=== PATIENT | male | born 1975 | race Caucasian/White ===

== ENCOUNTER 2017-12-26 01:56 | Outpatient (RCR) | payer MEDICAID, SELFPAY ==
[2017-12-25] MEDS: Normal Saline Flush 10 ML SYR IVP (13:34)
--- NOTE | 2017-12-25 14:08 | NUR.NOTE ---
Nursing Note: PT DEVELOPED WHAT APPEARS TO BE HIVES ALONG ARM ABOVE IV SITE AND EXTENDS TO JUST BELOW AC. AREA ALSO SLIGHTLY REDDENED. PT DENIES PAIN TO THE AREA, STATES THAT IT ITCHES. IV IS NOT INFILTRATED. NO OTHER SYMPTOMS ARE REPORTED BY PT. INFUSION STOPPED, MED REMOVED FROM IV LINE AND THEN LINE FLUSHED WITH SALINE. [place] [place]. WAITING FOR CALL.
== END 2018-01-08 23:59 | disposition home or self-care (01) ==
LOC: INF 01:56
PROVIDERS: PCP Registered Nurse; Visit Provider Internal Medicine
DX: G06.2 Extradural and subdural abscess, unspecified (principal); M86.00 Acute hematogenous osteomyelitis, unspecified site; K68.12 Psoas muscle abscess; R78.81 Bacteremia
CPT/HCPCS: 96365; J0878

== ENCOUNTER 2021-12-09 11:30 | Emergency (ER) | payer MEDICAID, SELFPAY ==
[2021-12-09 11:33] VITALS: BP 106/68; PULSE 86; RESP 18; TEMP 36.9; O2SAT 98
--- NOTE | 2021-12-09 11:41 | NUR.NOTE ---
additional allergy to infusion after surgery - unknown drug Nursing Note:
--- NOTE | 2021-12-09 11:45 | DI.RAD_ITS ---
Exam(s) XR RIBS LT W PA LAT CHEST EXAM: XR RIBS LT W PA LAT CHEST CLINICAL HISTORY: left rib injury 7,8,9. TECHNIQUE: 2D digital imaging was performed. COMPARISON: No exams were available for comparison FINDINGS: Four views: Left ribs-three views: There are no obvious left rib fractures. No rib lesions. Chest x-ray-two views: Heart size normal. Mediastinum not widened. Right lung is clear. There is p latelike atelectasis-mild infiltrate in the left lung base. Mild blunting of left costophrenic angle is probably a small amount of pleural fluid. There is no pneumothorax. IMPRESSION: No obvious left rib fractures but there is platelike atelectasis in left lung base. No pneumothorax. No pleural effusion. DATA REPOSITORY: RADIATION DOSE DELIVERED:
--- NOTE | 2021-12-09 11:56 | ED.GENADUL_ITS ---
Discharge Plan Disposition Patient Disposition: HOME Condition: Stable Discharge Details Clinical Impression: Fracture of rib Primary Care Provider: Marlon Dillon ED Provider: Thang Villagran Home Meds and New Rx's Prescriptions: New doxycycline hyclate 100 mg tablet 100 mg PO BID 7 Days Qty: 14 0RF lidocaine 5 % adhesive patch,medicated 1 patch topical DAILY PRN (Reason: pain) Qty: 15 1RF Rx Instructions: leave on most painful area for 12 hrs Continued buprenorphine-naloxone [Suboxone] 8-2 mg film 1 film sublingual BID Label Comments: PLACE TWO FILMS UNDER THE TONGUE EVERY DAY Discharge Instructions Instructions: Rib Fracture (ED) Additional Instructions: If you develop any new or significant worsening of symptoms feel free to return the emergency department for reassessment. Otherwise you may continue to use [id number] ibuprofen and it is recommended to take 600 mg every 6 hours as needed for pain. There was question of a possible pneumonia seen on chest x- ray so please take antibiotics as prescribed and until fully completed. Keep your follow-up with your primary care provider on Saturday and inform them of the broken rib with underlying pneumonia. Referrals: Marlon Dillon [Primary Care Provider] - 12/11/21 Medical Decision Making Patient presenting to the emergency department for chief complaint of left chest wall injury. Approximately 2 weeks ago he was playing with his child who accidentally kneed him in the chest. Since then he has had significant pain to the left anterior lower aspect of the chest wall with some ecchymosis off of the area. Patient denies any fever chills, difficulty breathing, cough or productive sputum. Physical exam shows clear lung sounds with ecchymosis over the seventh eighth and ninth midclavicular left ribs exam is otherwise unremarkable. We will perform radiological imaging for suspicion of acute rib fracture and will give lidocaine patch and IM Toradol pending results. Review of radiological imaging shows a possible left anterior sixth rib fracture with also possible 11th rib fracture. Also noted was a left lower lobe infiltrate and pleural effusion. Reassessed patient and patient states improvement of symptoms. We will place patient on antibiotics due to noting infiltrate in spite of patient's not having symptoms he is at high risk for development of pneumonia. We will also prescribe lidocaine patches and recommend over the counter NSAIDs. Patient also states he already has an appointment to follow-up with primary care provider on Saturday which I feel is appropriate. After discussion of diagnosis and plan of care patient has no further needs, questions, or concerns and states clear understanding to return to the emergency department for any worsening symptoms. This documentation was generated using Amnis dictation system, please disregard any oddities of phrase or misspellings. Imaging Data Radiologic Study: Attestation: I personally reviewed and interpreted this imaging study as follows: Imaging: X-Ray Radiologist's impression: FINDINGS: Limitations: A BB was not used to lencho the area of clinical interest. Bones/joints: Possible anterior left 6th rib fracture near the costochondral junction. Possible left posterior 11th rib fracture. Lungs: Patchy left lower lobe infiltrate. Soft tissues: Unremarkable. IMPRESSION: 1. Possible left anterior 6th rib fracture. Possible left posterior al rib fracture. 2. Left lower lobe infiltrate. 3. Left pleural effusion. HPI General Mode of arrival: ambulatory . Date/Time Provider Initiated Documentation: 12/09/21 11:48 . Limitations to Documentation: no limitations . Information obtained by: patient and RN notes reviewed . History of Present Illness 46 year old M presents to the emergency department with the chief complaint of left chest wall injury, described as moderate, with intensity rated at 8. Quality is described as aching and sharp, and is localized to the chest. Patient reports no radiation. Patient started experiencing this week(s) (2) and it has been constant. No relieving factors improve symptom(s), No exacerbating factors reported . Patient notes no other symptoms.. Patient did receive the following treatments prior to arrival, none Related Data Home Medications Medication Instructions Recorded Confirmed buprenorphine 8 mg-naloxone 2 mg 1 film sublingual BID 12/09/21 12/09/21 sublingual film (Suboxone) doxycycline hyclate 100 mg tablet 100 mg PO BID 7 days #14 tabs 12/09/21 lidocaine 5 % topical patch 1 patch topical DAILY PRN pain #15 12/09/21 ea Previous Rx's Medication Instructions Recorded doxycycline hyclate 100 mg tablet 100 mg PO BID 7 days #14 tabs 12/09/21 lidocaine 5 % topical patch 1 patch topical DAILY PRN pain #15 12/09/21 ea Allergies Allergy/AdvReac Type Severity Reaction Status Date / Time Penicillins AdvReac Unknown Unverified 12/09/21 11:40 General Stated Complaint: Chest/Rib TASHA: 4 Review of Systems Constitutional Constitutional: Denies chills and Denies fever(s) Cardiovascular Cardiovascular: Reports chest pain, Denies syncope and Denies dyspnea Respiratory Respiratory: Denies cough, Denies hemoptysis, Reports pain on inspiration and Denies dyspnea Gastrointestinal Gastrointestinal: Denies abdominal pain Musculoskeletal Musculoskeletal: Reports back pain (Chronic) Integumentary/Breasts Skin/Breast: Reports unusual bruising Neurologic Neurologic: Denies syncope PFSH All Active Problems (Updated 12/09/21 @ 13:05 by Thang Villagran NP) Fracture of rib (Acute) Social History Smoking/Tobacco Use Status: Current every day Tobacco Type: cigarettes Smoking risk assessment performed?: Yes Alcohol Intake: former Drug use: Current Sobriety Substance use type: crack/cocaine Do you feel safe at home: Yes Do you feel safe in your relationship?: Yes Exam Const General: cooperative, no acute distress and not ill appearing Orientation: alert, awake and oriented x3 Chest Chest: abnormal inspection of the chest other (Ecchymosis to lower left anterior chest wall), localized rib tenderness with anteroposterior compression left involving the 7th rib, involving the 8th rib and involving the 9th rib and tenderness rib left involving the 7th rib, involving the 8th rib and involving the 9th rib; no sternal xxx and no xiphoid process xxx Resp Effort & Inspection: normal respiratory effort, able to speak in complete sentences and no respiratory distress Cardio Rate: regular rate Rhythm: regular rhythm Heart Sounds: S1 normal and S2 normal Skin General skin exam: no rashes or lesions noted Neuro General: patient alert, patient awake, patient oriented x3, moves all extremities and no focal motor deficits Sensory Exam: no sensory deficits noted Course Vital Signs Vital signs: Vital Signs Temperature 36.9 C 12/09/21 11:33 Pulse 86 12/09/21 11:33 Respiratory Rate 18 12/09/21 11:33 Blood Pressure 106/68 12/09/21 11:33 Pulse Oximetry 98 12/09/21 11:33 Temperature 36.9 C 12/09/21 11:33 Temperature Source Skin 12/09/21 11:33 Pulse 86 12/09/21 11:33 Respiratory Rate 18 12/09/21 11:33 Respiratory Effort 12/09/21 11:44 Blood Pressure 106/68 12/09/21 11:33 Blood Pressure Position Sitting 12/09/21 11:33 Pulse Oximetry 98 12/09/21 11:33 Oxygen Delivery Method Room Air 12/09/21 11:33 Oxygen Flow Rate 0 12/09/21 11:33 Pain Level 8 12/09/21 11:33 Comment no ice or heat to sore area 12/09/21 11:33
[2021-12-09] MEDS: Ketorolac 30 MG/ML VIAL IM (12:48)
[2021-12-09] MEDS: Lidocaine 5% Patch 1 PATCH TP (12:49)
--- NOTE | 2021-12-09 12:49 | DI.VRAD_ITS ---
PROCEDURE INFORMATION: Exam: XR Left Ribs Exam date and time: 12/09/2021 12:25 PM Age: 46 years old Clinical indication: Left-sided; Other: Anteior mid rib pain TECHNIQUE: Imaging protocol: Radiologic exam of the Left ribs. Views: 2 views. COMPARISON: No relevant prior studies available. FINDINGS: Limitations: A BB was not used to elncho the area of clinical interest. Bones/joints: Possible anterior left 6th rib fracture near the costochondral junction. Possible left posterior 11th rib fracture. Lungs: Patchy left lower lobe infiltrate. Soft tissues: Unremarkable. IMPRESSION: 1. Possible left anterior 6th rib fracture. Possible left posterior al rib fracture. 2. Left lower lobe infiltrate. 3. Left pleural effusion. PROCEDURE INFORMATION: Exam: XR Chest Exam date and time: 12/09/2021 12:25 PM Age: 46 years old Clinical indication: Left-sided; Other: Anteior mid rib pain TECHNIQUE: Imaging protocol: Radiologic exam of the chest. Views: 2 views. COMPARISON: No relevant prior studies available. FINDINGS: Lungs: Left lower lobe infiltrate. Blunted left posterior angle. Pleural spaces: Unremarkable. No pleural effusion. No pneumothorax. Heart/Mediastinum: Unremarkable. No cardiomegaly. Bones/joints: Possible left anterior 6th rib fracture. IMPRESSION: 1. Left lower lobe infiltrate with left pleural effusion. 2. Possible left anterior 6th rib fracture. Dictated and Authenticated by: Yamilet Sam MD. Ordering:EMA Desir MD
[2021-12-09] MEDS: Doxycycline Hyclate 100 MG CAP PO (13:00)
== END 2021-12-09 13:14 | disposition home or self-care (01) ==
PROVIDERS: Emergency Provider Nurse Practitioner Family; PCP Registered Nurse
DX: S22.42XA Multiple fractures of ribs, left side, initial encounter for closed fracture (principal); W51.XXXA Accidental striking against or bumped into by another person, initial encounter; F17.210 Nicotine dependence, cigarettes, uncomplicated
CPT/HCPCS: 96372; 99284; 71046; 71100; J1885

== ENCOUNTER 2022-05-14 00:51 | Outpatient (CLI) | payer MEDICAID, SELFPAY ==
--- NOTE | 2022-05-14 13:10 | DI.RAD_ITS ---
Exam(s) XR HIP PELVIS ADULT BL EXAM: XR HIP PELVIS ADULT BL CLINICAL HISTORY: LEG LENGTH DISCREPENCY, M21.70 STANDING AP PELVIS LATERAL HIPS. TECHNIQUE: 2D digital imaging was performed. Three views. COMPARISON: No exams were available for comparison FINDINGS: BONES: No acute fracture is present. No bony destructive lesion is seen. JOINTS: No dislocation present. There is narrowing of the left superior hip joint space narrowing. There is spurring at the margin of the left femoral head as well as the acetabulum, greater superior ly. There is mild right hip joint space narrowing and minimal periarticular spurring. Bridging oste ophytes are noted in the lower lumbar spine. Intramedullary levon is noted in the right femur. The SI joints are unremarkable. SOFT TISSUE: Normal. IMPRESSION: Moderate degenerative changes of the left hip. Mild degenerative changes of the right hip. DATA REPOSITORY: RADIATION DOSE DELIVERED:
== END 2022-05-14 01:11 ==
LOC: DI 00:51
PROVIDERS: PCP Registered Nurse; Visit Provider Nurse Practitioner Family
DX: M16.0 Bilateral primary osteoarthritis of hip (principal); M76.21 Iliac crest spur, right hip
CPT/HCPCS: 73521

== ENCOUNTER → 2022-11-09 01:01 | Outpatient (CLI) | payer MEDICAID, SELFPAY ==
--- NOTE | 2022-11-09 | DI.MRI_ITS ---
Exam(s) MR LUMBAR SPINE WO EXAM: MR LUMBAR SPINE WO CLINICAL HISTORY: LUMBAGO WITH SCIATICA LT SIDE, M54.42, NEW RADICULOPATHY RT FOOT. TECHNIQUE: Multiplanar multisequence MRI of the Lumbar spine was performed. COMPARISON: CR XR HIP PELVIS ADULT BL from 05/14/2022 FINDINGS: Bones: The last intervertebral disc space is designated the L5/S1 level for the numbering purpose of this ex amination. The vertebral body heights are well maintained. Alignment: Unremarkable. The marrow signal characteristics are unremarkable. Cord: The conus tip ends at the T12 level. It is of normal size and signal intensity. T12-L1: No focal disc herniation is present. No central spinal canal stenosis.No neural foraminal st enosis. L1-2: No focal disc herniation is present. No central spinal canal stenosis.No neural foraminal sten osis. L2-3: No focal disc herniation is present. No central spinal canal stenosis.No neural foraminal edinson nosis. L3-4: Moderate loss disc height. Small endplate osteophytes and mild disc bulging.No focal disc marlen iation is present. No central spinal canal stenosis.No neural foraminal stenosis. L4-5: Disc height is maintained. Prominent disc bulging eccentric toward the left, entering into the neural foramen.. Facet degenerative changes. Severe bilateral neural foraminal narrowing. Moderate to severe central canal stenosis. L5-S1:No focal disc herniation is present. No central spinal canal stenosis.No neural foraminal steno sis. The visualized SI joints and sacrum are well maintained. Soft tissues: The paraspinal soft tissues are unremarkable. IMPRESSION: Prominent left-sided disc bulging entering into the left neural foramen. Combination of disc bulging and facet degenerative changes causes moderate to severe central canal stenosis as well as severe bi lateral neural foraminal narrowing. DATA REPOSITORY:
== END ==
PROVIDERS: PCP Registered Nurse; Visit Provider Nurse Practitioner Family
DX: M99.63 Osseous and subluxation stenosis of intervertebral foramina of lumbar region (principal); M47.26 Other spondylosis with radiculopathy, lumbar region
CPT/HCPCS: 72148

== ENCOUNTER → 2023-09-16 02:25 | Outpatient (CLI) | payer MEDICAID, SELFPAY ==
--- NOTE | 2023-09-16 | DI.MRI_ITS ---
Exam(s) MR LUMBAR SPINE WO EXAM: MR LUMBAR SPINE WO CLINICAL HISTORY: Bilateral lumbar radiculopathy, M54.16, worsening symptoms. TECHNIQUE: Multiplanar multisequence MRI of the Lumbar spine was performed. COMPARISON: CR XR HIP PELVIS ADULT BL from 05/14/2022 MR MR LUMBAR SPINE WO from 11/09/2022 FINDINGS: Bones: The last intervertebral disc space is designated the L5/S1 level for the numbering purpose of this ex amination. The vertebral body heights are well maintained. Alignment: Unremarkable. The marrow signal characteristics are unremarkable. Cord: The conus tip ends at the T12 level. It is of normal size and signal intensity. T12-L1: No focal disc herniation is present. No central spinal canal stenosis.No neural foraminal st enosis. L1-2: No focal disc herniation is present. No central spinal canal stenosis.No neural foraminal sten osis. L2-3: No focal disc herniation is present. No central spinal canal stenosis.No neural foraminal edinson nosis. L3-4: Stable disc space narrowing, eccentric toward the left.No focal disc herniation is present. No central spinal canal stenosis.No neural foraminal stenosis. L4-5: Previously noted left-sided disc herniation appears somewhat smaller when compared with previou s exam. Significant disc bulging persist. There also severe facet degenerative changes. There is n o change in the severe central canal stenosis as well as severe neural foraminal narrowing which is s lightly greater on the left. Laminectomy defect.. L5-S1: Facet degenerative changes. No focal disc herniation is present. Scarring and central canal. No central spinal canal stenosis.No neural foraminal stenosis. The visualized SI joints and sacrum are unremarkable. Soft tissues: The paraspinal soft tissues are unremarkable. IMPRESSION: Space decrease in prominence of left-sided disc herniation at L4-5. No change in severe central briana l stenosis at L4-5 as well as severe bilateral neural foraminal narrowing. Postsurgical changes at L 5. DATA REPOSITORY:
== END ==
PROVIDERS: PCP Registered Nurse; Visit Provider Nurse Practitioner Family
DX: M54.16 Radiculopathy, lumbar region (principal); M51.16 Intervertebral disc disorders with radiculopathy, lumbar region; M48.061 Spinal stenosis, lumbar region without neurogenic claudication
CPT/HCPCS: 72148